=== PATIENT | female | born 1985 | race Two or more races ===

== ENCOUNTER 2019-06-01 05:46 | Inpatient (IN) ==
[2019-06-01] MEDS ORDERED: BUTORPHANOL 1 MG/ML VIAL IV PRN (06:22)
[2019-06-01] MEDS ORDERED: ONDANSETRON 4 MG/2 ML VIAL IV PRN ×2 (06:22→18:30)
[2019-06-01] MEDS ORDERED: LACTATED RINGERS 250 ML IV ONE (06:22)
[2019-06-01] MEDS ORDERED: MEPERIDINE 50 MG/1 ML VIAL IV PRN (06:22)
[2019-06-01] MEDS ORDERED: OXYTOCIN/LR 20 UNIT/1,000 ML BAG IV SCH (06:30)
[2019-06-01 07:00] LABS: Basophils % 0.3 % (0.0-0.8); Eosinophils # 0.8 10*3/uL (0.0-0.87); Eosinophils % 6.1 % (0.00-10.9); Hematocrit 29.7 VOL% (35.7-47.0); Hemoglobin 9.3 GM/DL (12.0-16.0); Immature Granulocytes % 1.2 %; Immature Granulocytes Absolute 0.16 #; Lymphocytes # 3.3 10*3/uL (1.4-4.0); Lymphocytes % 25.1 % (21.3-54.2); Mean Corpuscular HGB Conc 31.3 GM/DL (32-36); Mean Corpuscular Volume 72.6 FL (87-102); Monocytes % 6.9 % (1.7-12.7); Neutrophils % 60.4 % (38.7-73.9); Platelet Count 226 T/CUMM (130-400); Red Blood Count 4.09 MC/CUMM (3.8-5.5)
[2019-06-01] MEDS: LACTATED RINGERS 1,000 ML IV SCH ×3 (07:15→17:04)
[2019-06-01 07:24] LABS: Alanine Aminotransferase 10 U/L (13-56); Albumin 2.7 G/DL (3.4-5.0); Alkaline Phosphatase 194 U/L (45-117); Aspartate Amino Transferase 17 U/L (0-37); Bilirubin,Total < 0.39 MG/DL (0.2-1.0); Blood Urea Nitrogen 7 MG/DL (7-18); Calcium 8.8 MG/DL (8.5-10.1); Estimated Glom Filtration Rate 111 ML/MIN; Glucose 75 MG/DL (74-106); Osmolality,Calculated 266.1 MOS/KG (273-304); Total Protein 6.8 G/DL (6.4-8.3)
[2019-06-01] MEDS ORDERED: ePHEDrine 50 MG/ML AMP IV PRN (14:47)
[2019-06-01] MEDS ORDERED: FAMOTIDINE 20 MG/2 ML VIAL IV ONE (14:47)
[2019-06-01] MEDS ORDERED: CITRIC ACID/SODIUM CITRATE 30 ML UDCUP PO ONE (14:47)
[2019-06-01] MEDS ORDERED: NALOXONE 0.4 MG/ML VIAL IV PRN (14:53)
[2019-06-01] MEDS ORDERED: diphenhydrAMINE 50 MG/1 ML VIAL IV PRN ×2 (14:53)
[2019-06-01] MEDS ORDERED: PROMETHAZINE 25 MG/1 ML VIAL IM PRN (14:53)
[2019-06-01] MEDS ORDERED: hydrOXYzine HCL 25 MG/1 ML VIAL IM PRN (14:53)
[2019-06-01] MEDS ORDERED: fentaNYL 2 MCG/ROPIV 0.2% EPID 100 ML EPIDURAL SCH (15:00)
[2019-06-01] MEDS ORDERED: fentaNYL 2 MCG/ROPIV 0.2% EPID 100 ML EPIDURAL ONE (15:05)
[2019-06-01] MEDS ORDERED: ceFAZolin 2,000 MG in PREMIX 1 EACH IV ONE (17:16)
[2019-06-01 17:47] LABS: Apearance,Urine CLEAR (Clear); Bacteria,Urine Occasional /HPF (Few); Bilirubin,Urine Negative (Negative); Blood, Urine Negative (Negative); Glucose,Urine (UA) Negative (Negative); Ketones,Urine 20 mg/dL (Negative); Mucus,Urine Occasional /LPF (Occasional); Nitrite,Urine Negative (Negative); Protein,Urine Negative; RBC,Urine 1 /HPF (0-4); Squamous Epithelial Cell,Urine Occasional /HPF (0-10); Urine Color Yellow (Yellow); Urine Urobilinogen < 2.0 EU/DL (0.2-1.0); WBC,Urine 1 /HPF (0-6)
[2019-06-01] MEDS ORDERED: RHO(D) IMMUNE GLOBULIN 300 MCG SYRINGE IM ONE (18:30)
[2019-06-01] MEDS ORDERED: DIPH/TET/ACEL PERT BOOSTER VACCINE 0.5 ML VIAL IM ONE (18:30)
[2019-06-01] MEDS ORDERED: MEASLES/MUMPS/RUBELLA VACCINE 0.5 ML VIAL SUBCUT ONE (18:30)
[2019-06-01] MEDS ORDERED: HYDROCORTISONE 2.5% RECTAL CREAM 30 GM TUBE TOP PRN (18:30)
[2019-06-01] MEDS ORDERED: ACETAMINOPHEN 325 MG TABLET PO PRN (18:30)
[2019-06-01] MEDS ORDERED: WITCH HAZEL PADS 100/JAR TOP PRN (18:30)
[2019-06-01] MEDS ORDERED: oxyCODONE/ACETAMINOPHEN 5-325 MG TABLET PO PRN ×2 (18:30)
[2019-06-01] MEDS ORDERED: OXYTOCIN/LR 20 UNIT/1,000 ML BAG IV ONE (18:30)
[2019-06-01] MEDS ORDERED: LANOLIN 50% CREAM 0.3 OZ TUBE TOP PRN (18:30)
[2019-06-01] MEDS ORDERED: BISACODYL 10 MG SUPP RECTAL PRN (18:30)
[2019-06-01] MEDS ORDERED: BENZOCAINE 20%/MENTHOL 0.5% SPRAY 56 GM CAN TOP PRN (18:30)
[2019-06-01] MEDS ORDERED: MORPHINE 10 MG/10 ML VIAL ONE (18:43)
[2019-06-01] MEDS ORDERED: PHENYLEPHRINE 1 MG/10 ML SYRINGE IV ONE (18:44)
[2019-06-01] MEDS ORDERED: MIDAZOLAM 2 MG/2 ML VIAL ONE (18:44)
[2019-06-01] MEDS ORDERED: LIDOCAINE MPF 2% /EPI 20 ML VIAL ONE (18:44)
[2019-06-01] MEDS ORDERED: HYDROmorphone 2 MG/1 ML VIAL IV PRN (20:09)
[2019-06-01] MEDS: IBUPROFEN 800 MG TABLET PO PRN (22:14)
[2019-06-01] MEDS: DOCUSATE SODIUM 100 MG CAPSULE PO SCH (22:58)
[2019-06-02] MEDS: ceFAZolin 1,000 MG in SYRINGE 1 EACH IV SCH ×2 (01:50→09:00)
[2019-06-02] MEDS: LACTATED RINGERS 1,000 ML IV SCH (01:54)
[2019-06-02] MEDS ORDERED: diphenhydrAMINE CAP 25 MG CAPSULE PO PRN (03:18)
[2019-06-02 05:19] LABS: Basophils # 0.1 10*3/uL (0.0-0.2); Basophils % 0.3 % (0.0-0.8); Eosinophils # 0.3 10*3/uL (0.0-0.87); Eosinophils % 2.1 % (0.00-10.9); Hematocrit 25.8 VOL% (35.7-47.0); Hemoglobin 8.1 GM/DL (12.0-16.0); Immature Granulocytes % 0.6 %; Lymphocytes # 1.8 10*3/uL (1.4-4.0); Lymphocytes % 11.5 % (21.3-54.2); Mean Corpuscular HGB Conc 31.4 GM/DL (32-36); Mean Corpuscular Volume 72.5 FL (87-102); Monocytes % 6.6 % (1.7-12.7); Neutrophils % 78.9 % (38.7-73.9); Platelet Count 179 T/CUMM (130-400); Red Blood Count 3.56 MC/CUMM (3.8-5.5); Red Cell Distribution Width 15.9 % (9.3-17.3)
[2019-06-02] MEDS: DOCUSATE SODIUM 100 MG CAPSULE PO SCH ×2 (08:59→22:09)
[2019-06-02] MEDS: IBUPROFEN 800 MG TABLET PO PRN (15:54)
[2019-06-03 07:15] VITALS: BP 108/67
[2019-06-03] MEDS ORDERED: FERROUS SULFATE 325 MG TABLET PO SCH (09:00)
[2019-06-03] MEDS: IBUPROFEN 800 MG TABLET PO PRN (09:01)
[2019-06-03] MEDS ORDERED: MAGNESIUM HYDROXIDE SUSP 30 ML UDCUP PO PRN (09:05)
[2019-06-03] MEDS ORDERED: SIMETHICONE CHEW 80 MG TABLET PO PRN (09:06)
[2019-06-03] MEDS: DOCUSATE SODIUM 100 MG CAPSULE PO SCH (09:27)
[2019-06-03] MEDS ORDERED: INFLUENZA VIRUS VACCINE 0.5 ML SYRINGE IM ONE (11:28)
== END 2019-06-03 15:45 | disposition home or self-care (01) | DRG 788 ==
LOC: N.LDOUT 05:46 → N.LD 05:49 → N.OB 21:40
PROVIDERS: ADMIT Specialist; ATTEND Specialist
PROC: LDCSECT (ICD-10-PCS; 2019-06-01 17:30)